=== PATIENT | male | born 1970 | race Caucasian/White ===

== ENCOUNTER 2021-01-16 18:01 | Observation (INO) | payer OTHER ==
--- NOTE | 2021-01-16 18:57 | RAD REPORT ---
EXAM DESCRIPTION: RAD - Chest Single View - 01/16/2021 6:42 pm CLINICAL HISTORY: CHEST PAIN Chest pain. COMPARISON: <Comparisons> FINDINGS: Portable technique limits examination quality. The lungs are grossly clear. The heart is mildly prominent in size. No displaced fractures.
[2021-01-16 19:23] LABS: Urine Blood Trace-intact (Negative); Urine Glucose Negative (Negative); Urine Protein Negative (Negative); Urine Specific Gravity 1.015 (1.005-1.030); Urine pH 6.5 (5.0-7.0)
[2021-01-16] MEDS ORDERED: NA CHLORIDE 0.9% 1,000 ML ONE (19:33)
[2021-01-16] MEDS ORDERED: ASPIRIN 81 MG CHEWABLE TABLET ONE (19:33)
[2021-01-16 19:35] LABS: Absolute Lymphocytes (CBC) 1.3 K/uL (0.7-4.9); Basophils % 0.6 % (0-1.3); Hematocrit 41.3 % (39.6-49.0); MPV 10.3 fL (7.6-11.3); RBC Red Blood Cell Count 4.37 M/uL (4.33-5.43)
[2021-01-16 19:42] LABS: Barbiturates NEGATIVE (NEGATIVE); Benzodiazepines NEGATIVE (NEGATIVE); Cocaine NEGATIVE (NEGATIVE); METHAMPHETAM NEGATIVE (NEGATIVE); Methadone NEGATIVE (NEGATIVE); Opiates NEGATIVE (NEGATIVE); Phencyclidine NEGATIVE (NEGATIVE); THC Cannibis NEGATIVE (NEGATIVE)
[2021-01-16 19:50] LABS: ALT/SGPT 81 U/L (12-78); AST/SGOT 46 U/L (15-37); Albumin 3.8 g/dL (3.4-5.0); Alkaline Phosphatase 97 U/L (45-117); BUN Blood Urea Nitrogen 17 mg/dL (7-18); Bicarbonate 28 mmol/L (21-32); Bilirubin Direct 0.3 mg/dL (0-0.2); Bilirubin Total 0.7 mg/dL (0.2-1.0); Glucose Level 109 mg/dL (74-106); Magnesium 2.3 mg/dL (1.8-2.4); NT PRO-BNP 3442 pg/mL (<125); Potassium 4.4 mmol/L (3.5-5.1); Protein, Total 7.3 g/dL (6.4-8.2); Sodium Level 139 mmol/L (136-145); Troponin (Emerg Dept Use Only) < 0.02 ng/mL (0.0-0.045)
[2021-01-16 19:51] LABS: Protime INR 1.73
--- NOTE | 2021-01-16 20:26 | ER ---
Nurse's Notes [facility] Name: London Desouza Age: 50 yrs Sex: Male : 1970 Arrival Date: 01/16/2021 Time: 18:04 Bed 16 Private MD: Diagnosis: Paroxysmal atrial fibrillation-with RVR Presentation: 01/16 18:13 Chief complaint: Patient states: as been in Afib w/ RVR for a week, saw his PCP and sv they put him on Metoprolol 50 mg PO but his PCP told him to come to the ER to get checked out. Denies CP, SOB or dizziness. Coronavirus screen: Client denies travel out of the [place] in the last 14 days. At this time, the client does not indicate any symptoms associated with coronavirus-19. Ebola Screen: No symptoms or risks identified at this time. Initial Sepsis Screen: Does the patient meet any 2 criteria? HR > 90 bpm. Does the patient have a suspected source of infection? Yes:. Risk Assessment: Do you want to hurt yourself or someone else? Patient reports no desire to harm self or others. Onset of symptoms was January 09, 2021. 18:13 Method Of Arrival: Ambulatory sv 18:13 Acuity: ALIDA 2 sv Historical: - Allergies: 18:15 No Known Allergies; sv - PMHx: 18:15 HTN; Atrial fibrillation; reflux; sv - PSHx: 18:15 None; sv - Immunization history:: Client reports receiving the 2nd dose of the Covid vaccine, Client reports receiving the 1st dose of the Covid vaccine. - Social history:: Smoking status: Patient denies any tobacco usage or history of. - Family history:: not pertinent. Screenin:41 Abuse screen: Denies threats or abuse. Nutritional screening: No deficits noted. ea Tuberculosis screening: No symptoms or risk factors identified. Fall Risk IV access (20 points). Assessment: 19:20 General: Appears in no apparent distress. Behavior is appropriate for age. Pain: Denies ea pain. Neuro: Level of Consciousness is awake, alert, obeys commands, Oriented to person, place, time. Cardiovascular: Patient's skin is warm and dry. Respiratory: Airway is patent Respiratory effort is even, unlabored, Respiratory pattern is regular, symmetrical. Derm: Skin is pink, warm \T\ dry. 20:00 Reassessment: Patient and/or family updated on plan of care and expected duration. Pain ea level reassessed. Patient is alert, oriented x 3, equal unlabored respirations, skin warm/dry/pink. 21:00 Reassessment: Patient and/or family updated on plan of care and expected duration. Pain ea level reassessed. Patient is alert, oriented x 3, equal unlabored respirations, skin warm/dry/pink. 22:00 Reassessment: Patient and/or family updated on plan of care and expected duration. Pain ea level reassessed. Patient is alert, oriented x 3, equal unlabored respirations, skin warm/dry/pink. 23:00 Reassessment: Patient and/or family updated on plan of care and expected duration. Pain ea level reassessed. Patient is alert, oriented x 3, equal unlabored respirations, skin warm/dry/pink. Vital Signs: 18:13 BP 148 / 134; Pulse 129; Resp 20; Temp 98; Pulse Ox 100% ; Weight 104.33 kg; Height 5 sv ft. 11 in. (180.34 cm); Pain 0/10; 20:12 BP 159 / 92; Pulse 130; Resp 18; Pulse Ox 99% on R/A; ea 20:40 BP 149 / 92; Pulse 112; Resp 18; Pulse Ox 94% ; ea 21:31 BP 140 / 94; Pulse 99; Resp 18; Pulse Ox 98% ; ea 01/17 00:28 BP 140 / 94; Pulse 80; Resp 18; Pulse Ox 99% on R/A; ea 01/16 18:13 Body Mass Index 32.08 (104.33 kg, 180.34 cm) sv ED Course: 01/16 18:04 Patient arrived in ED. rg4 18:15 Triage completed. sv 18:16 Arm band placed on. sv 18:17 Sheela Perez, LASHAY is Primary Nurse. tr6 18:22 Feng Wood MD is Attending Physician. bruno 18:42 XRAY Chest (1 view) In Process Unspecified. EDMS 19:06 Inserted saline lock: 18 gauge in left antecubital area, using aseptic technique. Blood tr6 collected. 19:20 Patient has correct armband on for positive identification. Bed in low position. Call ea light in reach. Side rails up X 1. community service director on. Pulse ox on. NIBP on. 20:20 Kaden Jang MD is Hospitalizing Provider. bruno 21:31 No provider procedures requiring assistance completed. Patient admitted, IV remains in ea place. Administered Medications: 19:37 Drug: NS 0.9% 1000 ml Route: IV; Rate: 1 bolus; Site: left antecubital; ea 22:00 Follow up: Response: No adverse reaction; IV Status: Completed infusion; IV Intake: ea 1000ml 19:38 Drug: Aspirin Chewable Tablet 324 mg Route: PO; ea 20:00 Follow up: Response: No adverse reaction ea 20:38 Drug: Digoxin 0.5 mg Route: IVP; Site: left antecubital; ea 01/17 00:30 Follow up: Response: No adverse reaction ea 01/16 20:40 Drug: Lopressor (metoprolol) 5 mg Route: IVP; Site: left antecubital; ea 01/17 00:29 Follow up: Response: No adverse reaction ea 01/16 20:40 Drug: Lopressor (metoprolol TARTRATE) 50 mg Route: PO; ea 01/17 00:30 Follow up: Response: No adverse reaction ea Intake: 01/16 22:00 IV: 1000ml; Total: 1000ml. ea Outcome: 20:25 Decision to Hospitalize by Provider. bruno 21:31 Instructed on the need for admit, Demonstrated understanding of instructions. ea 01/17 00:25 Admitted to ER Hold. Please see [facility] for further documentation. ea Condition: stable 15:51 Patient left the ED. ph Signatures: Dispatcher [employer] EDCeleste Whittaker RN RN sv Anderson, Corey, MD MD cha Hall, Patricia RN Maria Luz Jiménez ph rg4 Vaishali Floyd RN RN ea Ramnanan, Tiffany RN RN tr6
--- NOTE | 2021-01-16 20:26 | EDPHYS ---
Physician Documentation [facility] Name: London Desouza Age: 50 yrs Sex: Male : 1970 Arrival Date: 01/16/2021 Time: 18:04 Bed 16 Private MD: ED Physician Feng Wood HPI: 01/16 20:16 This 50 yrs old Male presents to ER via Ambulatory with complaints of bruno Palpitations. 20:16 The patient presents with a history of irregular heart beat, heart racing. Context: The bruno symptoms occur at rest. Onset: The symptoms/episode began/occurred 2 day(s) ago. Duration: The patient or guardian reports a single episode, that is still ongoing, and unchanged. Modifying factors: The symptoms are aggravated by nothing. The symptoms are alleviated by nothing. Associated signs and symptoms: Pertinent positives: lightheadedness, SOB. Severity of symptoms: At their worst the symptoms were mild moderate in the emergency department the symptoms are unchanged. The patient has not experienced similar symptoms in the past. Historical: - Allergies: 18:15 No Known Allergies; sv - PMHx: 18:15 HTN; Atrial fibrillation; reflux; sv - PSHx: 18:15 None; sv - Immunization history:: Client reports receiving the 2nd dose of the Covid vaccine, Client reports receiving the 1st dose of the Covid vaccine. - Social history:: Smoking status: Patient denies any tobacco usage or history of. - Family history:: not pertinent. ROS: 20:16 Constitutional: Negative for fever, chills, and weight loss, Eyes: Negative for injury, bruno pain, redness, and discharge, ENT: Negative for injury, pain, and discharge, Neck: Negative for injury, pain, and swelling, Respiratory: Negative for shortness of breath, cough, wheezing, and pleuritic chest pain, Abdomen/GI: Negative for abdominal pain, nausea, vomiting, diarrhea, and constipation, Back: Negative for injury and pain, : Negative for injury, bleeding, discharge, and swelling, MS/Extremity: Negative for injury and deformity, Skin: Negative for injury, rash, and discoloration, Neuro: Negative for headache, weakness, numbness, tingling, and seizure, Psych: Negative for depression, anxiety, suicide ideation, homicidal ideation, and hallucinations, Allergy/Immunology: Negative for hives, rash, and allergies, Endocrine: Negative for neck swelling, polydipsia, polyuria, polyphagia, and marked weight changes, Hematologic/Lymphatic: Negative for swollen nodes, abnormal bleeding, and unusual bruising. 20:16 Cardiovascular: Positive for palpitations. Exam: 20:16 Constitutional: This is a well developed, well nourished patient who is awake, alert, bruno and in no acute distress. Head/Face: Normocephalic, atraumatic. Eyes: Pupils equal round and reactive to light, extra-ocular motions intact. Lids and lashes normal. Conjunctiva and sclera are non-icteric and not injected. Cornea within normal limits. Periorbital areas with no swelling, redness, or edema. ENT: Nares patent. No nasal discharge, no septal abnormalities noted. Tympanic membranes are normal and external auditory canals are clear. Oropharynx with no redness, swelling, or masses, exudates, or evidence of obstruction, uvula midline. Mucous membranes moist. Neck: Trachea midline, no thyromegaly or masses palpated, and no cervical lymphadenopathy. Supple, full range of motion without nuchal rigidity, or vertebral point tenderness. No Meningismus. Chest/axilla: Normal chest wall appearance and motion. Nontender with no deformity. No lesions are appreciated. Respiratory: Lungs have equal breath sounds bilaterally, clear to auscultation and percussion. No rales, rhonchi or wheezes noted. No increased work of breathing, no retractions or nasal flaring. Abdomen/GI: Soft, non-tender, with normal bowel sounds. No distension or tympany. No guarding or rebound. No evidence of tenderness throughout. Back: No spinal tenderness. No costovertebral tenderness. Full range of motion. Male : Normal genitalia with no discharge or lesions. Skin: Warm, dry with normal turgor. Normal color with no rashes, no lesions, and no evidence of cellulitis. MS/ Extremity: Pulses equal, no cyanosis. Neurovascular intact. Full, normal range of motion. Neuro: Awake and alert, GCS 15, oriented to person, place, time, and situation. Cranial nerves II-XII grossly intact. Motor strength 5/5 in all extremities. Sensory grossly intact. Cerebellar exam normal. Normal gait. Psych: Awake, alert, with orientation to person, place and time. Behavior, mood, and affect are within normal limits. 20:16 Cardiovascular: Rate: tachycardic, Rhythm: irregularly irregular, Pulses: Pulses are 4+ in bilateral radial, brachial, femoral, popliteal, posterior tibial and and dorsalis pedis arteries.. Heart sounds: normal, Edema: is not appreciated, JVD: is not appreciated. 20:16 ECG was reviewed by the Attending Physician. Vital Signs: 18:13 BP 148 / 134; Pulse 129; Resp 20; Temp 98; Pulse Ox 100% ; Weight 104.33 kg; Height 5 sv ft. 11 in. (180.34 cm); Pain 0/10; 20:12 BP 159 / 92; Pulse 130; Resp 18; Pulse Ox 99% on R/A; ea 20:40 BP 149 / 92; Pulse 112; Resp 18; Pulse Ox 94% ; ea 21:31 BP 140 / 94; Pulse 99; Resp 18; Pulse Ox 98% ; ea 01/17 00:28 BP 140 / 94; Pulse 80; Resp 18; Pulse Ox 99% on R/A; ea 01/16 18:13 Body Mass Index 32.08 (104.33 kg, 180.34 cm) sv MDM: 01/16 18:29 Patient medically screened. bruno 20:18 STEFFEN Risk Score: Total Score = 0. Differential diagnosis: arrythmia, dehydration, bruno stress disorder. Data reviewed: vital signs, nurses notes, lab test result(s), EKG, radiologic studies, plain films. 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 Test interpretation: by ED physician or midlevel provider: ECG, plain radiologic studies. Counseling: I had a detailed discussion with the patient and/or guardian regarding: the historical points, exam findings, and any diagnostic results supporting the discharge/admit diagnosis, lab results, radiology results. 01/16 18:23 Order name: Basic Metabolic Panel [facility] 01/16 18:23 Order name: CBC with Diff; Complete Time: 19:57 bruno 01/16 18:23 Order name: LFT's; Complete Time: 19:57 bruno 01/16 18:23 Order name: Magnesium; Complete Time: 19:57 [facility] 01/16 18:23 Order name: NT PRO-BNP; Complete Time: 19:57 [facility] 01/16 18:23 Order name: PT-INR; Complete Time: 19:57 bruno 01/16 18:23 Order name: Troponin (emerg Dept Use Only); Complete Time: 19:57 [facility] 01/16 18:23 Order name: Urine Drug Screen; Complete Time: 19:57 [facility] 01/16 18:23 Order name: TSH; Complete Time: 19:57 bruno 01/16 18:23 Order name: Basic Metabolic Panel; Complete Time: 19:57 EDVT 01/16 19:23 Order name: Urine Dipstick-Ancillary; Complete Time: 19:57 EDMS 01/17 05:03 Order name: CBC with Automated Diff EDMS 01/17 05:23 Order name: Comprehensive Metabolic Panel EDMS 01/17 05:23 Order name: Lipid Profile EDMS 01/16 18:19 Order name: EKG; Complete Time: 18:20 sv 01/16 18:19 Order name: EKG - Nurse/Tech; Complete Time: 19:56 sv 01/16 18:23 Order name: XRAY Chest (1 view); Complete Time: 19:57 [facility] 01/16 18:23 Order name: Cardiac monitoring; Complete Time: 19:56 [facility] 01/16 18:23 Order name: IV Saline Lock; Complete Time: 19:07 bruno 01/16 18:23 Order name: Labs collected and sent; Complete Time: 19:07 [facility] 01/16 18:23 Order name: O2 Per Protocol; Complete Time: 19:07 [facility] 01/16 18:23 Order name: O2 Sat Monitoring; Complete Time: 19:07 [facility] 01/17 05:23 Order name: T4 Free EDVT 01/17 05:23 Order name: Magnesium EDVT 01/17 05:24 Order name: Thyroid Stimulating Hormone EDVT EC:16 Rate is 136 beats/min. Rhythm is irregularly irregular. QRS [place] is Normal. MO interval bruno is normal. QRS interval is normal. QT interval is normal. No Q waves. T waves are Normal. No ST changes noted. Clinical impression: Atrial Fibrillation and No evidence of ischemia. Interpreted by me. Reviewed by me. Administered Medications: 19:37 Drug: NS 0.9% 1000 ml Route: IV; Rate: 1 bolus; Site: left antecubital; ea 22:00 Follow up: Response: No adverse reaction; IV Status: Completed infusion; IV Intake: ea 1000ml 19:38 Drug: Aspirin Chewable Tablet 324 mg Route: PO; ea 20:00 Follow up: Response: No adverse reaction ea 20:38 Drug: Digoxin 0.5 mg Route: IVP; Site: left antecubital; ea 01/17 00:30 Follow up: Response: No adverse reaction ea 01/16 20:40 Drug: Lopressor (metoprolol) 5 mg Route: IVP; Site: left antecubital; ea 01/17 00:29 Follow up: Response: No adverse reaction ea 01/16 20:40 Drug: Lopressor (metoprolol TARTRATE) 50 mg Route: PO; ea 01/17 00:30 Follow up: Response: No adverse reaction ea Disposition Summary: 01/16/21 20:25 Hospitalization Ordered Hospitalization Status: Inpatient Admission bruno Provider: Kaden Jang cha Condition: Fair bruno Problem: new bruno Symptoms: have improved bruno Bed/Room Type: Standard bruno Location: [facility] ER HOLD(01/16/21 22:16) Room Assignment: ERHOLD-(01/16/21 22:16) cg Diagnosis - Paroxysmal atrial fibrillation - with RVR bruno Forms: - Medication Reconciliation Form bruno - SBAR form bruno Signatures: Dispatcher [employer] Celeste Louis RN RN Feng Wood MD MD cha Garcia, Cindy, RN RN Vaishali Floyd RN RN ea Corrections: (The following items were deleted from the chart) 01/16 22:16 20:25 Telemetry/MedSurg (Inpatient) bruno 22:16 20:25 bruno cg
[2021-01-16] MEDS ORDERED: METOPROLOL TAR 50 MG TAB ONE (20:52)
[2021-01-16] MEDS ORDERED: METOPROLOL TARTRATE 5 MG/5 ML INJ IV ONE (20:53)
[2021-01-16] MEDS ORDERED: DIGOXIN 0.25 MG/ML AMP ONE (20:53)
--- NOTE | 2021-01-16 21:41 | P.HP ---
Certification for Inpatient Patient admitted to: Observation With expected LOS: <2 Midnights Patient will require the following post-hospital care: None Practitioner: I am a practitioner with admitting privileges, knowledge of patient current condition, hospital course, and medical plan of care. Services: Services provided to patient in accordance with Admission requirements found in Title 42 Section 412.3 of the Code of Federal Regulations Patient History Date of Service: 01/16/21 Primary Care Provider: Robert Elder NP Reason for admission: AFib RVR History of Present Illness: 42-year-old male with history of atrial fibrillation, hypertension, GERD presents emergency department for palpitations. Patient reports that he has recently placed on metoprolol, Xarelto a couple days ago but started having significant palpitations. Patient reports he is diagnosed with atrial fibrillation approximately 10 years ago and has it paroxysmally. Patient evaluated in the emergency department, labs significant for glucose 109 GFR 71 BNP 3442 EKG with AFib RVR rate around 150 on arrival. Patient received digoxin 0.5 IV, metoprolol 50 p.o., metoprolol 5 IV currently rate is around 105-120 AFib. ED provider wishes to admit under observation for further evaluation and management of AFib RVR. - Past Medical/Surgical History -: Atrial fibrillation -: Hypertension -: GERD -: none Psychosocial/ Personal History: Lives with family - Family History Father -: Heart disease, Cancer Mother -: Cancer - Social History Smoking Status: Never smoker Alcohol use: Yes CD- Drugs: No Caffeine use: Yes Place of Residence: Home Review of Systems 10-point ROS is otherwise unremarkable Cardiovascular: Palpitations Physical Examination - Physical Exam General: Alert, In no apparent distress, Oriented x3 HEENT: Atraumatic, PERRLA, Mucous membr. moist/pink Neck: Supple, 2+ carotid pulse no bruit, No LAD Respiratory: Clear to auscultation bilaterally, Normal air movement Cardiovascular: No edema, Normal S1 S2, Irregular heart rate/rhythm (AFib RVR rate around 115) Capillary refill: <2 Seconds Gastrointestinal: Normal bowel sounds, No tenderness Musculoskeletal: No tenderness Integumentary: No rashes Neurological: Normal speech, Normal strength at 5/5 x4 extr, Normal tone, Normal affect - Studies Laboratory Data (last 24 hrs) 01/16/21 19:05: PT 20.0 H, INR 1.73 01/16/21 19:05: WBC 9.70, Hgb 14.2, Hct 41.3, Plt Count 189 01/16/21 19:05: Sodium 139, Potassium 4.4, BUN 17, Creatinine 1.10, Glucose 109 H, Magnesium 2.3, Total Bilirubin 0.7, AST 46 H, ALT 81 H, Alkaline Phosphatase 97 Assessment and Plan - Plan Assessment Paroxysmal atrial fibrillation on chronic anticoagulation therapy with rapid ventricular response Hypertension GERD Plan Paroxysmal atrial fibrillation on chronic anticoagulation therapy with rapid ventricular response: Monitor on telemetry, cardiology consult in place. Continue Xarelto 20 mg, continue metoprolol 50 mg p.o. b.i.d.. Patient received IV metoprolol and digoxin in the emergency department, will attempt to gain rate controlled throughout the evening. DVT prophylaxis continue Xarelto. Appreciate further input from cardiology. Patient is stable this time. Hypertension: Continue home medications including metoprolol/lisinopril. GERD: Continue home meds Discharge Plan: Home Plan to discharge in: 24 Hours - Advance Directives Does patient have a Living Will: No Does patient have a Durable POA for Healthcare: No - Code Status/Comfort Care Code Status Assessed: Yes (Full code) Critical Care: No Time Spent Managing Pts Care (In Minutes): 55
[2021-01-17] MEDS ORDERED: ONDANSETRON 4 MG/2 ML VIAL IV PRN (00:04)
[2021-01-17 01:18] VITALS: BMI 28.3
[2021-01-17 04:55] VITALS: TEMP 97.8
[2021-01-17 05:01] LABS: Absolute Lymphocytes (CBC) 1.6 K/uL (0.7-4.9); Basophils % 0.8 % (0-1.3); Hematocrit 40.9 % (39.6-49.0); Lymphocytes % 15.2 % (15.3-44.8); MPV 10.6 fL (7.6-11.3)
[2021-01-17 05:21] LABS: Albumin 3.5 g/dL (3.4-5.0); Bilirubin Total 0.8 mg/dL (0.2-1.0); Magnesium 2.4 mg/dL (1.8-2.4); Potassium 4.3 mmol/L (3.5-5.1); Protein, Total 7.1 g/dL (6.4-8.2); Thyroid Stimulating Hormone 2.57 uIU/mL (0.360-3.740)
--- NOTE | 2021-01-17 07:43 | EKG ---
Test Date: 2021-01-16 Test Time: 19:45:44 High Lighter: MITCHELL MEASUREMENT RESULTS: Intervals: Rate: 136 RI: QRSD: 86 QT: 334 QTc: 502 [place]: P: RI: QRS: 98 T: 62 INTERPRETIVE STATEMENTS: Atrial fibrillation with rapid ventricular response Rightward axis Abnormal ECG No previous ECG available for comparison Electronically Signed On 01-17-21 07:42:35 CDT by Nathanael Dacosta
[2021-01-17] MEDS ORDERED: METOPROLOL TAR 50 MG TAB ONE (08:25)
[2021-01-17] MEDS ORDERED: METOPROLOL TAR 50 MG TAB PO SCH (09:00)
--- NOTE | 2021-01-17 12:24 | ECHO ---
HEIGHT: 5 ft 11 in WEIGHT: 203 lb 0 oz DATE OF STUDY: 01/17/[address]: Kaden Jang MD 2-DIMENSIONAL: YES M.MODE: YES DOPPLER: YES COLOR FLOW: YES TDS: PORTABLE: DEFINITY: BUBBLE STUDY: DIAGNOSIS: ATRIAL FIBRILLATION CARDIAC HISTORY: CATHERIZATION: NO SURGERY: NO PROSTHETIC VALVE: NO PACEMAKER: NO MEASUREMENTS (cm) DIASTOLIC (NORMALS) SYSTOLIC (NORMALS) IVSd 1.4 (0.6-1.2) LA Diam 4.6 (1.9-4.0) LVEF 54% LVIDd 4.4 (3.5-5.7) LVIDs 3.2 (2.0-3.5) %FS 28% LVPWd 1.3 (0.6-1.2) Ao Diam 3.2 (2.0-3.7) 2 DIMENSIONAL ASSESSMENT: RIGHT ATRIUM: NORMAL LEFT ATRIUM: DILATED RIGHT VENTRICLE: NORMAL LEFT VENTRICLE: NORMAL TRICUSPID VALVE: NORMAL MITRAL VALVE: NORMAL PULMONIC VALVE: NORMAL AORTIC VALVE: NORMAL PERICARDIAL EFFUSION: NONE AORTIC ROOT: NORMAL LEFT VENTRICULAR WALL MOTION: NORMAL DOPPLER/COLOR FLOW: COMMENTS: LEFT ATRIAL ENLARGEMENT - NO THROMBUS. NORMAL LEFT VENTRICULAR SIZE AND FUNCTION. ATRIAL FIBRILLATION. NO EFFUSION. TECHNOLOGIST: WAYNE CHRISTENSEN
[2021-01-17 16:04] VITALS: O2SAT 99
[2021-01-17 16:37] VITALS: BP 132/87
[2021-01-17] MEDS ORDERED: RIVAROXABAN 10 MG TABLET PO SCH (17:00)
[2021-01-17] MEDS ORDERED: RIVAROXABAN 20 MG TABLET PO SCH (17:00)
--- NOTE | 2021-01-17 20:16 | P.DS ---
Admission Date: 01/16/21 Discharge Date: 01/17/21 Primary Care Provider: Robert Elder NP Disposition: ROUTINE DISCHARGE Discharge Condition: GOOD Reason for Admission: AFib RVR Consultations: Cardiology - Dr. Dacosta Procedures: CXR (01/16): lungs are grossly clear. The heart is mildly prominent in size. No displaced fractures. TTE (01/17): Left atrial enlargement - no thrombus. normal LV size/function. no effusion Problem List Paroxysmal atrial fibrillation on anticoagulation therapy with rapid ventricular response Hypertension GERD Brief History of Present Illness: 42-year-old male with history of atrial fibrillation, hypertension, GERD presents emergency department for palpitations. Patient reports that he has recently placed on metoprolol, Xarelto a couple days ago but started having significant palpitations. Patient reports he is diagnosed with atrial fibrillation approximately 10 years ago and has it paroxysmally. Patient evaluated in the emergency department, labs significant for glucose 109 GFR 71 BNP 3442 EKG with AFib RVR rate around 150 on arrival. Patient received digoxin 0.5 IV, metoprolol 50 p.o., metoprolol 5 IV currently rate is around 105-120 AFib. ED provider wishes to admit under observation for further evaluation and management of AFib RVR. Hospital Course: Heart rate improved. Cardiology was consulted. Recommended doubling his home metoprolol dose and discharge home to follow up in the office next week. Continue lisinopril and Xarelto. Per patient's reported past medical history, seems to have CHADSVASc score of 1, but stated he reviewed risks/benefits with PCP and they decided to start anticoagulation. Vital Signs/Physical Exam: Physical Exam General: Alert, In no apparent distress, Oriented x3 HEENT: no thyromegaly Respiratory: Clear to auscultation bilaterally, Normal air movement Cardiovascular: No edema, Normal S1 S2, Irregular heart rate/rhythm HR: 100 Gastrointestinal: soft, nontender Musculoskeletal: No tenderness Integumentary: No rashes Temp Pulse Resp BP Pulse Ox 97.8 F 104 H 18 132/87 98 01/17/21 12:00 01/17/21 12:00 01/17/21 12:00 01/17/21 12:00 01/17/21 12:00 Laboratory Data at Discharge: WBC 10.20 K/uL (4.3-10.9) 01/17/21 04:22 Hgb 14.1 g/dL (13.6-17.9) 01/17/21 04:22 Hct 40.9 % (39.6-49.0) 01/17/21 04:22 Plt Count 178 K/uL (152-406) 01/17/21 04:22 PT 20.0 SECONDS (9.5-12.5) H 01/16/21 19:05 INR 1.73 01/16/21 19:05 Sodium 141 mmol/L (136-145) 01/17/21 04:22 Potassium 4.3 mmol/L (3.5-5.1) 01/17/21 04:22 BUN 15 mg/dL (7-18) 01/17/21 04:22 Creatinine 1.04 mg/dL (0.55-1.3) 01/17/21 04:22 Glucose 107 mg/dL (74-106) H 01/17/21 04:22 Magnesium 2.4 mg/dL (1.8-2.4) 01/17/21 04:22 Total Bilirubin 0.8 mg/dL (0.2-1.0) 01/17/21 04:22 AST 31 U/L (15-37) 01/17/21 04:22 ALT 68 U/L (12-78) 01/17/21 04:22 Alkaline Phosphatase 90 U/L (45-117) 01/17/21 04:22 Triglycerides 165 mg/dL (<150) H 01/17/21 04:22 Cholesterol 164 mg/dL (<200) 01/17/21 04:22 HDL Cholesterol mg/dL (40-60) 01/17/21 04:22 Cholesterol/HDL Ratio 54.60 01/17/21 04:22 Physician Discharge Instructions: You were found to have atrial fibrillation with fast heart rate. This improved with increased dose of metoprolol. Your cardiac enzymes were normal. Cardiology was consulted and recommended discharge home with double your home dose of metoprolol and follow up in his office next week Diet: AHA Activity: Ad cosme Followup: Nathanael Dacosta MD [ACTIVE - CAN ADMIT] - OOT,OOT [Primary Care Provider] - Time spent managing pt's care (in minutes): 45
--- NOTE | 2021-01-19 13:26 | CON ---
Date of Consultation: 01/17/2021 Reason For Admission: Atrial fibrillation. History Of Present Illness: Mr. Desouza is a 50-year-old male with history of atrial fibrillation, hy pertension, came in with recurrent atrial fibrillation. He denied any chest pain, nausea, vomiting, diaphoresis, PND, orthopnea, pedal edema or syncope. He knew he was in atrial fibrillation because t his has happened to him before. He was already back in sinus rhythm by the time I saw him. An echoc ardiogram, which was done was already normal. He was treated with metoprolol 50 b.i.d., He does not take any medication at home. Allergies: NONE. Review of Systems: Negative. Social History: Negative. Family History: Negative. Physical Examination: Vital Signs: By the time I saw him, he was in sinus rhythm. HEENT: Negative. Neck: Supple. No bruit. Chest: Clear to auscultation and percussion. Cardiac: Revealed a regular rhythm and rate without any murmurs, gallops, or rubs. Abdomen: Benign. Extremities: Revealed no clubbing, cyanosis, or edema. Diagnostic Data: Fairly unremarkable except for BNP of 3442, triglyceride was 165. Chest x-ray was negative. Echo was negative. Impression And Plan: Mr. Desouza has paroxysmal atrial fibrillation. He needs to go home on metoprol ol and aspirin. He has really a low CHADS score. He needs to have a followup appointment [facility] and have a stress test and follow up on his heart rhythm. I will make arrangements for that as an outpatient. He can go home whenever it is okay with Laine. EMMA/SKY Voice ID: [id number] Report ID: [id number]
== END 2021-01-17 14:35 | disposition home or self-care (01) ==
LOC: ER 18:01 → ERHOLD 21:31
PROVIDERS: ADMIT Hospitalist; ATTEND Hospitalist
DX: I48.0 Paroxysmal atrial fibrillation (principal); I10 Essential (primary) hypertension; K21.9 Gastro-esophageal reflux disease without esophagitis
CPT/HCPCS: 96361; 93005; 93306; 85025 ×2; 80048; 36415; 83735 ×2; 85610; 80061; 80076; 84443 ×2; 81003; 84484; 84439; 80053; 83880; 80307; 71045; 96375; 96374; 99285; J1160; J7030; G0378 ×3

== ENCOUNTER 2021-02-03 06:31 | Day surgery (SDC) | payer OTHER ==
[2021-01-31 12:39] LABS: Absolute Lymphocytes (CBC) 1.9 K/uL (0.7-4.9); Basophils % 1.1 % (0-1.3); Hematocrit 44.5 % (39.6-49.0); Lymphocytes % 22.3 % (15.3-44.8); MPV 9.1 fL (7.6-11.3); RBC Red Blood Cell Count 4.71 M/uL (4.33-5.43)
[2021-01-31 12:55] LABS: Protime INR 1.09
[2021-02-03] MEDS ORDERED: NA CHLORIDE 0.9% 500 ML ONE (07:07)
[2021-02-03] MEDS ORDERED: MIDAZOLAM HCL 10 ML ONE (07:30)
[2021-02-03] MEDS ORDERED: ATROPINE SULF 1 MG/10 ML SYR IV ONE (07:31)
[2021-02-03] MEDS ORDERED: FLUMAZENIL 0.1 MG/ML (5 mL VIAL) IV ONE (07:31)
[2021-02-03] MEDS ORDERED: MIDAZOLAM HCL 5 ML ONE (07:59)
[2021-02-03] MEDS ORDERED: MIDAZOLAM HCL 2 MG/2 ML INJ ONE (08:07)
[2021-02-03] MEDS ORDERED: FENTANYL CITR 100 MCG/2 ML ONE (08:07)
[2021-02-03 08:36] VITALS: TEMP 97
[2021-02-03 08:47] VITALS: BP 108/67; O2SAT 95
--- NOTE | 2021-02-03 08:50 | OP ---
Surgeon: Nathanael Dacosta MD Veneer Joiner: 1. Ninfa Landry. 2. Sushma Neal. If he goes back into atrial fibrillation, we will consider amiodarone or Multaq or maybe even an abla tion. Reason For Admission: Direct current cardioversion for atrial fibrillation. Indication: Mr. Desouza was 50 years old. Has had a history of paroxysmal atrial fibrillation. The last time it happened, however, he persisted with atrial fibrillation despite high-dose beta-blockers and Xarelto. Had a normal echocardiogram. Was having symptoms with his atrial fibrillation. Procedure In Detail: He was brought to the mill [facility] today and given a total of 17 mg of Versed IV pu sh, 50 mg of fentanyl IV push. He received 1 shock with 100 joules and converted to sinus rhythm. T here were no complications. No blood loss. Postoperative Diagnosis: Status post successful cardioversion from atrial fibrillation to sinus rhyt hm. We will continue beta-blockers and Xarelto. When he wakes up, he can go home. EMMA/SKY Voice ID: [id number] Report ID: [id number]
--- NOTE | 2021-02-04 12:40 | EKG ---
Test Date: 2021-02-03 Test Time: 06:58:47 Product Strategy Director: EVE MEASUREMENT RESULTS: Intervals: Rate: 53 AR: 184 QRSD: 94 QT: 508 QTc: 476 [place]: P: 30 AR: 184 QRS: 67 T: 47 INTERPRETIVE STATEMENTS: Sinus bradycardia Otherwise normal ECG Compared to ECG 01/16/2021 19:45:44 Atrial fibrillation no longer present Right-axis deviation no longer present Electronically Signed On 02-04-21 12:37:43 CDT by Nathanael Dacosta
== END 2021-02-03 09:17 | disposition home or self-care (01) ==
LOC: CCL 06:31
DX: I48.91 Unspecified atrial fibrillation (principal); I10 Essential (primary) hypertension
CPT/HCPCS: 93005; 85025; 80048; 36415; 85610; 85730; 92960; J2250 ×3; J3010; J7040

== ENCOUNTER 2021-10-13 06:45 | Day surgery (SDC) | payer OTHER ==
[2021-10-10 14:32] LABS: Absolute Lymphocytes (CBC) 1.4 K/uL (0.7-4.9); Hematocrit 46.8 % (39.6-49.0); MPV 9.1 fL (7.6-11.3); RBC Red Blood Cell Count 4.94 M/uL (4.33-5.43)
[2021-10-10 14:39] LABS: Protime INR 1.83
[2021-10-10 15:21] LABS: Potassium 4.5 mmol/L (3.5-5.1)
[~2021-10-13 06:45] MED LIST: ATROPINE SULF 1 MG/10 ML SYR IV ONE; FENTANYL CITR 100 MCG/2 ML ONE; FLUMAZENIL 0.1 MG/ML (5 mL VIAL) IV ONE; METOPROLOL TARTRATE 5 MG/5 ML INJ IV ONE; MIDAZOLAM HCL 15 ML ONE; NA CHLORIDE 0.9% 500 ML ONE
[2021-10-13 07:09] VITALS: TEMP 97.2
[2021-10-13] MEDS ORDERED: MIDAZOLAM HCL 2 MG/2 ML INJ ONE (07:43)
[2021-10-13 09:04] VITALS: BP 100/78; O2SAT 96
--- NOTE | 2021-10-13 09:59 | OP ---
Surgeon: Nathanael Dacosta MD Offset Press Assistant: Ella Contreras. The patient will go home whenever he wakes up and I will see him in the office in 1 or 2 weeks. Mr. Desouza is 51 years old. He was brought to the hospital today to the recovery room for direct cur rent cardioversion. Procedure: Direct current cardioversion. Indication: Recurrent atrial fibrillation. Has failed beta-jordan. He is on Xarelto and had a car dioversion in the past. On beta-blockers, he stayed in sinus rhythm, but then his atrial fibrillatio n reoccurred with symptoms at this time. Procedure In Detail: In the recovery room, he received a total of 15 mg of Versed IV push and 3 sepa rate dosages of 5 mg each. We achieved total sedation with that. He received 1 shock of 200 joules and he converted with that shock to sinus rhythm. There were no complications or blood loss. The pa arias tolerated the procedure well. Final Diagnosis: Successful cardioversion from atrial fibrillation to sinus rhythm. Anesthesia: Total conscious sedation was 30 minutes. Further medical therapy will be to continue the Xarelto, decrease his metoprolol dose from 3 times a day to once a day and initiate Multaq therapy 400 mg b.i.d. If that fails down the road, we will consider amiodarone and/or ablation. EMMA/SKY Voice ID: [id number] Report ID: [id number]
--- NOTE | 2021-10-14 08:33 | EKG ---
Test Date: 2021-10-13 Test Time: 07:03:42 Final Canoe Inspector: MEASUREMENT RESULTS: Intervals: Rate: 59 CT: 188 QRSD: 98 QT: 486 QTc: 481 Campbell: P: 33 CT: 188 QRS: 71 T: 42 INTERPRETIVE STATEMENTS: Sinus bradycardia Possible Left atrial enlargement Possible Lateral infarct, age undetermined Cannot rule out Inferior infarct, age undetermined T wave abnormality, consider anterior ischemia Abnormal ECG Compared to ECG 02/03/2021 06:58:47 Myocardial infarct finding now present T-wave abnormality now present Possible ischemia now present Electronically Signed On 10-14-21 08:28:24 CDT by Nathanael Dacosta
== END 2021-10-13 07:45 | disposition home or self-care (01) ==
LOC: CCL 06:45
DX: I48.0 Paroxysmal atrial fibrillation (principal); I10 Essential (primary) hypertension; Z79.01 Long term (current) use of anticoagulants; Z20.822 Contact with and (suspected) exposure to COVID-19
CPT/HCPCS: 93005; 85025; 80048; 36415; 85610; 85730; 92960; U0003; J2250; J7040; J3010